=== PATIENT | male | born 1990 | race African-American/Black ===

== ENCOUNTER 2024-04-21 12:14 | Emergency (ER) | payer MEDICARE, OTHER ==
[~2024-04-21] VITALS: Ht 175.3 cm; Wt 68.2 kg
[2024-04-21 12:19] VITALS: BP 106/70; PULSE 66; RESP 18; TEMP 97.8; O2SAT 100
== END 2024-04-21 13:24 | disposition home or self-care (01) ==
LOC: EMS 12:18
DX: F15.10 Other stimulant abuse, uncomplicated (principal); F10.90 Alcohol use, unspecified, uncomplicated; J45.909 Unspecified asthma, uncomplicated; F17.210 Nicotine dependence, cigarettes, uncomplicated; Y90.9 Presence of alcohol in blood, level not specified
CPT/HCPCS: 99281; Z7502